=== PATIENT | female | born 1985 | race Caucasian/White ===

== ENCOUNTER 2017-11-07 01:44 | Emergency (ER) | payer OTHER ==
[~2017-11-07] VITALS: Ht 157.5 cm; Wt 56.9 kg
[2017-11-07 02:31] LABS: HEMATOCRIT 37.5 % (36.0-46.0); MCHC 32.8 G/DL (30.0-36.0); MCV 94.5 FL (83-99); PLATELET COUNT 216 K/uL (156-360); RBC DIS.WIDTH-CV 13.1 % (11.8-14.6); RBC DIS.WIDTH-SD 45.3 % (39-53); RED BLOOD COUNT 3.97 M/uL (3.80-5.20); WHITE BLOOD COUNT 9.2 K/uL (4.1-10.2)
[2017-11-07 02:47] LABS: CHLORIDE 107 mEq/L (99-109); POTASSIUM 3.8 mEq/L (3.7-5.4); SODIUM 139 mEq/L (136-147)
[2017-11-07 02:48] LABS: GLUCOSE 105 mg/dL (70-99)
[2017-11-07 02:50] LABS: ANION GAP 9 MEQ/L (2-14)
[2017-11-07 02:52] LABS: GFR ESTIMATE (CALCULATED) > 59 mL/min/
[2017-11-07 02:53] LABS: UREA NITROGEN (BUN) 12 mg/dL (9-23)
[2017-11-07 03:04] LABS: QUANTITATIVE HCG < 4.0 MIU/ML
[2017-11-07 04:58] VITALS: BP 107/63
== END 2017-11-07 04:59 | disposition home or self-care (01) ==
LOC: EME 01:44
PROVIDERS: Emergency Medicine
DX: R51 Headache (principal); A69.20 Lyme disease, unspecified
CPT/HCPCS: 70450; 80048; 84702; 85027; 99281; 99284; J2765; J3030; J7050